=== PATIENT | female | born 1950 | race Two or more races ===

== ENCOUNTER 2020-12-08 09:07 | Outpatient (REF) | payer MEDICARE, MEDICAID, SELFPAY ==
[2020-12-08 10:31] LABS: Anion Gap 11 (12-20); Blood Urea Nitrogen 15 mg/dL (9-16); Calcium 9.1 mg/dL (8.4-10.2); Carbon Dioxide 26 mmol/L (22-29); Chloride 109 mmol/L (96-108); Estimated Glomerular Filt Rate > 60; Glucose Fasting 86 mg/dL (60-99); Potassium 4.3 mmol/L (3.3-5.1); Sodium 142 mmol/L (135-145)
[2020-12-08 11:41] LABS: Folate 15.6 ng/mL (> or = 4.0); Vitamin B12 480 pg/mL (200-900)
[2020-12-11 07:31] LABS: IgA 273 mg/dL (70-320); IgG 1430 mg/dL (600-1540); IgM 102 mg/dL (50-300)
== END 2020-12-08 09:08 | disposition home or self-care (01) ==
LOC: HO.LAB 09:07
PROVIDERS: PCP Internal Medicine; Visit Provider Psychiatry & Neurology Neurology
DX: G62.9 Polyneuropathy, unspecified (principal)
CPT/HCPCS: 36415; 80048; 82607; 82746; 82784; 86334